=== PATIENT | female | born 1970 | race Caucasian/White ===

== ENCOUNTER 2022-09-08 06:29 | Emergency (ER) | payer OTHER ==
[2022-09-08] MEDS ORDERED: LORazepam 2 MG/ML VIAL ONE (07:03)
[2022-09-08] MEDS ORDERED: LEVETIRACETAM 500 MG/5 ML VIAL IV ONE ×3 (07:03→07:53)
[2022-09-08] MEDS ORDERED: NA CHLORIDE 0.9% 50 ML ONE ×2 (07:05→07:44)
[2022-09-08 07:14] LABS: Absolute Lymphocytes (CBC) 1.8 K/uL (0.7-4.9); Hematocrit 29.8 % (36.0-45.0); Lymphocytes % 29.7 % (15.3-44.8); MCV 76.2 fL (80-100); MPV 9.3 fL (7.6-11.3); RBC Red Blood Cell Count 3.91 M/uL (3.86-4.86)
--- NOTE | 2022-09-08 07:14 | EDPHYS ---
Physician Documentation [facility] Name: Lydia Rhoades Age: 52 yrs Sex: Female : 1970 Arrival Date: 09/08/2022 Time: 06:29 Bed 18 Private MD: Salomón Schulz HPI: 09/08 07:03 This 52 yrs old Female presents to ER via EMS with complaints of left side wicho weakness, awoke like this, seizure in er. 07:03 The patient's problem is reported as paresthesias, in left upper extremity, in left wicho lower extremity, in left side of face, an apparent seizure, Motor activity is described as localized shaking in the upper extremity, localized shaking of the lower extremity, No loss of consciousness. Patient was not incontinent of bowel or bladder. Patient was apneic. dysphasia. Onset: The symptoms/episode began/occurred at an unknown time. Duration: The episode is continuous. Context: the episode(s) was witnessed, by family, , symptoms became apparent upon waking. The symptoms are alleviated by nothing. The symptoms are aggravated by nothing. The patient presents after having a single isolated seizure, that lasted 3 minute(s). Character of seizure(s): Loss of consciousness: the patient experienced loss of consciousness, Motor activity: generalized, shaking all over, Incontinence: none, Apnea: the patient did not experience apnea, Circulation: the patient did not experience evidence of pulse disturbance. Seizure onset: just prior to arrival. Seizure Hx: the patient has no previous seizure history. Historical: - Allergies: 06:49 No Known Allergies; lg3 - Home Meds: 06:49 levetiracetam 500 mg/5 mL (5 mL) oral solution 2 times per day [Active]; trazodone 50 lg3 mg Oral tablet daily [Active]; midodrine 5 mg oral tablet 3 times per day [Active]; - PMHx: 06:44 Anemia; brain hemorrhage; cirrhosis of liver; fatty liver; HYPOGLYCEMIA; legally blind; kl - PSHx: 06:44 section; Cholecystectomy; Craniotomy; kl - Immunization history:: Client reports receiving the 2nd dose of the Covid vaccine. - Social history:: Smoking status: Patient denies any tobacco usage or history of. Patient uses alcohol, on a daily basis. ROS: 07:03 Constitutional: Negative for fever, chills, and weight loss, Eyes: Negative for injury, wicho pain, redness, and discharge, ENT: Negative for injury, pain, and discharge, Neck: Negative for injury, pain, and swelling, Cardiovascular: Negative for chest pain, palpitations, and edema, Respiratory: Negative for shortness of breath, cough, wheezing, and pleuritic chest pain, Abdomen/GI: Negative for abdominal pain, nausea, vomiting, diarrhea, and constipation, Back: Negative for injury and pain, : Negative for injury, bleeding, discharge, and swelling, Skin: Negative for injury, rash, and discoloration, Psych: Negative for depression, anxiety, suicide ideation, homicidal ideation, and hallucinations, Allergy/Immunology: Negative for hives, rash, and allergies, Endocrine: Negative for neck swelling, polydipsia, polyuria, polyphagia, and marked weight changes, Hematologic/Lymphatic: Negative for swollen nodes, abnormal bleeding, and unusual bruising. 07:03 MS/extremity: Positive for decreased range of motion, of the left arm and left leg. 07:03 Neuro: Positive for seizure activity, of the face, right arm, left arm, right leg and left leg. Exam: 07:03 Constitutional: This is a well developed, well nourished patient who is awake, alert, wicho and in no acute distress. Head/Face: Normocephalic, atraumatic. Eyes: Pupils equal round and reactive to light, extra-ocular motions intact. Lids and lashes normal. Conjunctiva and sclera are non-icteric and not injected. Cornea within normal limits. Periorbital areas with no swelling, redness, or edema. ENT: Nares patent. No nasal discharge, no septal abnormalities noted. Tympanic membranes are normal and external auditory canals are clear. Oropharynx with no redness, swelling, or masses, exudates, or evidence of obstruction, uvula midline. Mucous membranes moist. Neck: Trachea midline, no thyromegaly or masses palpated, and no cervical lymphadenopathy. Supple, full range of motion without nuchal rigidity, or vertebral point tenderness. No Meningismus. Chest/axilla: Normal chest wall appearance and motion. Nontender with no deformity. No lesions are appreciated. Cardiovascular: Regular rate and rhythm with a normal S1 and S2. No gallops, murmurs, or rubs. Normal PMI, no JVD. No pulse deficits. Respiratory: Lungs have equal breath sounds bilaterally, clear to auscultation and percussion. No rales, rhonchi or wheezes noted. No increased work of breathing, no retractions or nasal flaring. Abdomen/GI: Soft, non-tender, with normal bowel sounds. No distension or tympany. No guarding or rebound. No evidence of tenderness throughout. Back: No spinal tenderness. No costovertebral tenderness. Full range of motion. Skin: Warm, dry with normal turgor. Normal color with no rashes, no lesions, and no evidence of cellulitis. Psych: Awake, alert, with orientation to person, place and time. Behavior, mood, and affect are within normal limits. 07:03 Musculoskeletal/extremity: ROM: full passive range of motion, limited active range of motion, in the left arm and left leg, Circulation is intact in all extremities. 07:03 Neuro: Orientation: to person, place, time, situation, Mentation: appropriate for stated age, Memory: appropriate for stated age, no acute changes, Cranial nerves: facial droop noted on left, Sensation: light touch is decreased in the left arm and left leg, Gait: not tested. Deep tendon reflexes are 0 (absent) in the left bicep, left patellar and left Achilles, Babinski testing is normal, seizure activity, grand mal type is displayed. 08:04 ECG was reviewed by the Attending Physician. [facility] Vital Signs: 06:46 BP 153 / 74; Pulse 106; Resp 19 S; Pulse Ox 87% on R/A; lg3 06:46 Weight 76 kg (M); lg3 06:52 Pulse Ox 96% on 3 lpm NC; lg3 07:00 BP 169 / 78; Pulse 118; Resp 18; Pulse Ox 100% on Non-rebreather mask; db 07:45 BP 166 / 77; Pulse 127; Resp 20; Pulse Ox 99% on Non-rebreather mask; db 08:05 BP 166 / 77; Pulse 124; Resp 14; Temp 98.2(TE); Pulse Ox 97% on 4 lpm NC; db NIH Stroke Scale Scores: 08:05 NIHSS Score: 10 [facility] [place] Coma Score: 07:50 Eye Response: to pain(2). Motor Response: localizes pain(5). Verbal Response: db incomprehensible(2). Total: 9. MDM: 06:40 Patient medically screened. wicho 07:10 Differential diagnosis: CVA, TIA, Dementia, paralysis, metabolic disorder. Differential wicho diagnosis: cerebral vascular accident, cardiac arrhythmia, seizure, TIA. Data reviewed: vital signs, nurses notes, EMS record, lab test result(s), EKG, radiologic studies, CT scan, plain films. Management of patient was discussed with the following: Spring Fitter Helper: dr lam. I considered the following discharge prescriptions or medication management in the emergency department Medications were administered in the Emergency Department. See MAR. Test considered but Not performed: MRI: no mri done here. Care significantly affected by the following chronic conditions: Liver Disease, cirrhosis, anemia, brain hemorrhage. 09/08 06:42 Order name: Basic Metabolic Panel; Complete Time: 08:03 wicho 09/08 06:42 Order name: CBC with Diff 09/08 06:42 Order name: LFT's; Complete Time: 08:03 wicho 09/08 06:42 Order name: Magnesium; Complete Time: 08:03 wicho 09/08 06:42 Order name: NT PRO-BNP; Complete Time: 08:03 wicho 09/08 06:42 Order name: PT-INR; Complete Time: 07:26 wicho 09/08 06:42 Order name: Troponin HS; Complete Time: 08:03 wicho 09/08 06:42 Order name: Ptt, Activated; Complete Time: 07:26 wicho 09/08 06:42 Order name: Type And Screen; Complete Time: 09:05 wicho 09/08 06:42 Order name: Urinalysis w/ reflexes; Complete Time: 09: wicho 09/08 07:03 Order name: AMMONIA; Complete Time: 08:03 wicho 09/08 07:11 Order name: Type And Screen db 09/08 07:15 Order name: Glucose, Ancillary Testing; Complete Time: 07:19 EDMS 09/08 06:42 Order name: XRAY Chest (1 view); Complete Time: 09:05 wicho 09/08 06:42 Order name: CT Stroke Brain w/o Contrast; Complete Time: 09:05 wicho 09/08 06:53 Order name: CT Head Angio; Complete Time: 09:05 wicho 09/08 06:53 Order name: CT Neck Angio; Complete Time: 09:05 wicho 09/08 06:42 Order name: EKG; Complete Time: 06:43 09/08 06:42 Order name: Cardiac monitoring; Complete Time: 06:53 wicho 09/08 06:42 Order name: EKG - Nurse/Tech; Complete Time: 08:36 09/08 06:42 Order name: IV Saline Lock; Complete Time: 06:53 wicho 09/08 06:42 Order name: Labs collected and sent; Complete Time: 06:54 09/08 06:42 Order name: O2 Per Protocol; Complete Time: 06:53 09/08 06:42 Order name: O2 Sat Monitoring; Complete Time: 06:53 09/08 06:42 Order name: IV Saline Lock - Large Bore; Complete Time: 06:54 wicho 09/08 06:42 Order name: Misc. Order: hob 45; Complete Time: 06:54 wicho 09/08 06:42 Order name: Larson; Complete Time: 08:24 wicho 09/08 06:42 Order name: NPO; Complete Time: 08:24 wicho 09/08 07:13 Order name: Seizure Precautions; Complete Time: 08:10 [facility] EC:04 Rate is 128 beats/min. Rhythm is regular. QRS Calvin is Normal. [place] interval is normal. wicho QRS interval is normal. QT interval is normal. No Q waves. T waves are Normal. No ST changes noted. Clinical impression: Sinus tachycardia. Interpreted by me. Reviewed by me. Administered Medications: 06:51 CANCELLED (Duplicate Order): Cardene IV 5 mcg/kg IV at per protocol continuous; 5mg/hr wicho 06:51 CANCELLED (Duplicate Order): Labetalol IV 10 mg IV at per protocol once wicho 07:01 Drug: Ativan IVP 2 mg Route: IVP; Site: left antecubital; lg3 08:37 Follow up: Response: No adverse reaction db 07:01 Drug: Keppra IV 1000 mg Route: IV; Rate: bolus; Site: left antecubital; lg3 08:37 Follow up: Response: No adverse reaction; IV Status: Completed infusion; IV Intake: 50mldb 07:45 Drug: Keppra IV 1000 mg Route: IV; Rate: per protocol; Site: left antecubital; db 08:37 Follow up: Response: No adverse reaction; IV Status: Infusion continued upon transfer db 08:03 CANCELLED (Duplicate Order): foLIC Acid IVPB 1 mg IVPB once wicho 08:03 CANCELLED (Duplicate Order): NS 0.9% IV 500 ml IV at bolus once wicho 08:10 Drug: foLIC Acid IVPB 1 mg Route: IVPB; Site: left antecubital; db 08:37 Follow up: Response: No adverse reaction; IV Status: Infusion continued upon transfer db 08:10 Drug: foLIC Acid IVPB 1 mg Route: IVPB; Site: left antecubital; db 08:36 Follow up: Response: No adverse reaction; IV Status: Infusion continued upon transfer db 08:11 Drug: NS 0.9% IV 1000 ml Route: IV; Rate: 1 bolus; Site: left antecubital; db 08:37 Follow up: Response: No adverse reaction; IV Status: Infusion continued upon transfer db 08:18 Drug: Magnesium Sulfate IVPB 1 grams Route: IVPB; Infused Over: 1 hrs; Site: left db antecubital; 08:36 Follow up: Response: No adverse reaction; IV Status: Infusion continued upon transfer db 08:36 Not Given (not given. 1L bolus given by me): NS 0.9% IV 1000 ml IV at 75 ml/hr db continuous 08:38 Not Given (not given by previous shiftt): Ondansetron IVP 4 mg IVP once; over 2 minutes db Disposition Summary: 09/08/22 07:13 Transfer Ordered Transfer Location: [facility] wicho Reason: Higher level of care wicho Condition: Stable wicho Problem: new wicho Symptoms: have improved wicho Accepting Physician: to [facility], dr lacy(09/08/22 08:40) db Diagnosis - Epileptic seizures related to external causes, not intractable wicho - Cerebral infarction, unspecified - acute, last normal midnight wicho Forms: - Medication Reconciliation Form wicho - SBAR form wicho NIH Stroke Scale - NIH Stroke Score Date: 09/08/2022 Time: 08:05 Total Score = 10 10. Dysarthria (speech clarity - read or repeat words) - 0(Normal) 11. Extinction and Inattention (visual/tactile/auditory/spatial/personal) - 0(No abnormality) 1a. Level of Consciousness (LOC) - 0(Alert) 1b. Level of Consciousness (LOC) (Month \T\ Age) - 0(Both) 1c. LOC Commands (Open \T\ Closes Eyes/Senior [employer] Network Engineer) - 0(Both) 2. Best Gaze (Lateral Gaze Paresis) - 0(Normal) 3. Visual Field Loss - 0(No visual loss) 4. Facial Palsy - 1(Minor Paralysis) 5a. Left Arm: Motor (10-second hold) - 3(No effort against gravity) 5b. Right Arm: Motor (10-second hold) - 0(No drift) 6a. Left Leg: Motor (5-second hold - always test supine) - 3(No effort against gravity) 6b. Right Leg: Motor (5-second hold - always test supine) - 0(No drift) 7. Limb Ataxia (finger/nose \T\ heel/harkins - test with eyes open) - 2(Present in two limbs) 8. Sensory Loss (pinprick arms/legs/face) - 1(Mild to moderate loss) 9. Best Language: Aphasia (description/naming/reading) - 0(No aphasia) Initials: [facility] Signatures: Dispatcher [employer] EDEssence Foster, CARDROOM DRAWING RUNNER-C CARDROOM DRAWING RUNNER-CkMarianna Gannon, RN Salomón Gore MD MD cha Gibson, Lacie, RN RN lg3 Miranda Neves, RN RN db Corrections: (The following items were deleted from the chart) 06:51 06:42 Cardene IV 5 mcg/kg IV at per protocol continuous; 5mg/hr ordered. [facility] 06:51 06:42 Labetalol IV 10 mg IV at per protocol once ordered. [facility] 08:03 07:13 foLIC Acid IVPB 1 mg IVPB once ordered. [facility] 08: 07:13 NS 0.9% IV 500 ml IV at bolus once ordered. [facility] 08:40 07:13 to [facility], dr bambi de los santos
--- NOTE | 2022-09-08 07:14 | ER ---
Nurse's Notes [facility] Name: Lydia Rhoades Age: 52 yrs Sex: Female : 1970 Arrival Date: 09/08/2022 Time: 06:29 Bed 18 Private MD: Diagnosis: Epileptic seizures related to external causes, not intractable;Cerebral infarction, unspecified-acute, last normal midnight Presentation: 09/08 06:05 Chief complaint: EMS states: left sided paralysis last known normal midnight pt taken kl to CT pt awake alert answers appropriately tremors noted pt is legally blind. Care prior to arrival: Medication(s) given: zofran 4 mg, IV initiated. 20 GA, in the left forearm. 06:05 Method Of Arrival: EMS: [facility] 06:05 Acuity: LARISA 2 kl 06:46 Coronavirus screen: Client denies travel out of the [place] in the last 14 days. At this lg3 time, the client does not indicate any symptoms associated with coronavirus-19. Ebola Screen: No symptoms or risks identified at this time. Initial Sepsis Screen: Does the patient meet any 2 criteria? No. Patient's initial sepsis screen is negative. Does the patient have a suspected source of infection? No. Patient's initial sepsis screen is negative. Risk Assessment: Do you want to hurt yourself or someone else? Patient reports no desire to harm self or others. Onset of symptoms was September 08, 2022. Triage Assessment: 06:46 General: Appears distressed, Behavior is flat. lg3 Historical: - Allergies: 06:49 No Known Allergies; lg3 - Home Meds: 06:49 levetiracetam 500 mg/5 mL (5 mL) oral solution 2 times per day [Active]; trazodone 50 lg3 mg Oral tablet daily [Active]; midodrine 5 mg oral tablet 3 times per day [Active]; - PMHx: 06:44 Anemia; brain hemorrhage; cirrhosis of liver; fatty liver; HYPOGLYCEMIA; legally blind; kl - PSHx: 06:44 section; Cholecystectomy; Craniotomy; kl - Immunization history:: Client reports receiving the 2nd dose of the Covid vaccine. - Social history:: Smoking status: Patient denies any tobacco usage or history of. Patient uses alcohol, on a daily basis. Screenin:50 [facility] ED Fall Risk Assessment (Adult) History of falling in the last 3 months, lg3 including since admission No falls in past 3 months (0 pts). Abuse screen: Denies threats or abuse. Denies injuries from another. Nutritional screening: No deficits noted. Tuberculosis screening: No symptoms or risk factors identified. Assessment: 07:00 Reassessment: upon shift change patient was actively seizing. Patient given 2mg Ativan db IVP and 1Gm of Keppra per Dr. Cagle. patient placed on non-rebreather and non responsive. Unable to complete NIH score on my shift due to patient is post ictal. 07:05 Respiratory: Airway is patent Respiratory effort is even, unlabored, Respiratory db pattern is regular, symmetrical. 07:05 Neuro: Level of Consciousness is post ictal. db 07:15 Reassessment: patient to CT on monitor and on O2 with RN and equipment maint tech. db 08:00 Reassessment: Report given to HILL Rico at [facility] ICU. ss 08:11 Pain: Unable to use pain scale. Patient is disoriented. Patient is unresponsive. post db ictal. 08:31 Reassessment: Patient appears in no apparent distress at this time. Patient and/or db family updated on plan of care and expected duration. Pain level reassessed. patient placed on EMS stretcher and began waking up and moving around. Patient is now confused but responsive. General: Appears in no apparent distress. comfortable, Behavior is. Neuro: Level of Consciousness is confused, post ictal, Oriented to post ictal moving around confused. Vital Signs: 06:46 BP 153 / 74; Pulse 106; Resp 19 S; Pulse Ox 87% on R/A; lg3 06:46 Weight 76 kg (M); lg3 06:52 Pulse Ox 96% on 3 lpm NC; lg3 07:00 BP 169 / 78; Pulse 118; Resp 18; Pulse Ox 100% on Non-rebreather mask; db 07:45 BP 166 / 77; Pulse 127; Resp 20; Pulse Ox 99% on Non-rebreather mask; db 08:05 BP 166 / 77; Pulse 124; Resp 14; Temp 98.2(TE); Pulse Ox 97% on 4 lpm NC; db Vitals: 07:45 Cardiac Rhythm Assessment Sinus tach. db [place] Coma Score: 07:50 Eye Response: to pain(2). Motor Response: localizes pain(5). Verbal Response: db incomprehensible(2). Total: 9. NIH Stroke Scale Scores: 08:05 NIHSS Score: 10 wicho ED Course: 06:38 Patient arrived in ED. rv1 06:40 Salomón Cagle MD is Attending Physician. wicho 06:44 Triage completed. kl 06:46 Arm band placed on right wrist. lg3 06:48 CT Stroke Brain w/o Contrast In Process Unspecified. EDMS 06:50 Patient has correct armband on for positive identification. Placed in gown. Bed in low lg3 position. Call light in reach. Side rails up X2. Client placed on continuous cardiac and pulse oximetry monitoring. NIBP monitoring applied. residential monitor on. Door closed. Noise minimized. Warm blanket given. Family accompanied patient. 06:50 Maintain EMS IV. Dressing intact. Good blood return noted. Site clean \T\ dry. Gauge \T\ lg 3 site: 20 LAC. IV is patent. Oxygen administration via nasal cannula \T\ 3L/min Response to oxygen therapy: symptoms improved. 06:54 Type And Screen Sent. lg3 06:54 Ptt, Activated Sent. lg3 06:54 Basic Metabolic Panel Sent. lg3 06:54 CBC with Diff Sent. lg3 06:54 LFT's Sent. lg3 06:54 Magnesium Sent. lg3 06:55 NT PRO-BNP Sent. lg3 06:55 PT-INR Sent. lg3 06:55 Troponin HS Sent. lg3 07:11 Miranda Neves, RN is Primary Nurse. db 07:33 CT Head Angio In Process Unspecified. EDMS 07:33 CT Neck Angio In Process Unspecified. EDMS 07:45 XRAY Chest (1 view) In Process Unspecified. EDMS 07:54 Larson cath inserted, using sterile technique, 16 Fr., by me, balloon inflated. db 08:35 No provider procedures requiring assistance completed. Patient transferred, IV remains db in place. Administered Medications: 06:51 CANCELLED (Duplicate Order): Cardene IV 5 mcg/kg IV at per protocol continuous; 5mg/hr wicho 06:51 CANCELLED (Duplicate Order): Labetalol IV 10 mg IV at per protocol once wicho 07:01 Drug: Ativan IVP 2 mg Route: IVP; Site: left antecubital; lg3 08:37 Follow up: Response: No adverse reaction db 07:01 Drug: Keppra IV 1000 mg Route: IV; Rate: bolus; Site: left antecubital; lg3 08:37 Follow up: Response: No adverse reaction; IV Status: Completed infusion; IV Intake: 50mldb 07:45 Drug: Keppra IV 1000 mg Route: IV; Rate: per protocol; Site: left antecubital; db 08:37 Follow up: Response: No adverse reaction; IV Status: Infusion continued upon transfer db 08:03 CANCELLED (Duplicate Order): foLIC Acid IVPB 1 mg IVPB once wicho 08:03 CANCELLED (Duplicate Order): NS 0.9% IV 500 ml IV at bolus once wicho 08:10 Drug: foLIC Acid IVPB 1 mg Route: IVPB; Site: left antecubital; db 08:37 Follow up: Response: No adverse reaction; IV Status: Infusion continued upon transfer db 08:10 Drug: foLIC Acid IVPB 1 mg Route: IVPB; Site: left antecubital; db 08:36 Follow up: Response: No adverse reaction; IV Status: Infusion continued upon transfer db 08:11 Drug: NS 0.9% IV 1000 ml Route: IV; Rate: 1 bolus; Site: left antecubital; db 08:37 Follow up: Response: No adverse reaction; IV Status: Infusion continued upon transfer db 08:18 Drug: Magnesium Sulfate IVPB 1 grams Route: IVPB; Infused Over: 1 hrs; Site: left db antecubital; 08:36 Follow up: Response: No adverse reaction; IV Status: Infusion continued upon transfer db 08:36 Not Given (not given. 1L bolus given by me): NS 0.9% IV 1000 ml IV at 75 ml/hr db continuous 08:38 Not Given (not given by previous shiftt): Ondansetron IVP 4 mg IVP once; over 2 minutes db Medication: 08:00 VIS not applicable for this client. ss Intake: 08:37 IV: 50ml; Total: 50ml. db Outcome: 07:13 ER care complete, transfer ordered by . wicho 08:34 Transferred by [facility] to [facility], Transfer form completed. db 08:34 Condition: stable 08:34 critical 08:34 Instructed on the need for transfer, family informed 08:40 Patient left the ED. filiberto NIH Stroke Scale - NIH Stroke Score Date: 09/08/2022 Time: 08:05 Total Score = 10 10. Dysarthria (speech clarity - read or repeat words) - 0(Normal) 11. Extinction and Inattention (visual/tactile/auditory/spatial/personal) - 0(No abnormality) 1a. Level of Consciousness (LOC) - 0(Alert) 1b. Level of Consciousness (LOC) (Month \T\ Age) - 0(Both) 1c. LOC Commands (Open \T\ Closes Eyes/Package Dye Stand Loader) - 0(Both) 2. Best Gaze (Lateral Gaze Paresis) - 0(Normal) 3. Visual Field Loss - 0(No visual loss) 4. Facial Palsy - 1(Minor Paralysis) 5a. Left Arm: Motor (10-second hold) - 3(No effort against gravity) 5b. Right Arm: Motor (10-second hold) - 0(No drift) 6a. Left Leg: Motor (5-second hold - always test supine) - 3(No effort against gravity) 6b. Right Leg: Motor (5-second hold - always test supine) - 0(No drift) 7. Limb Ataxia (finger/nose \T\ heel/harkins - test with eyes open) - 2(Present in two limbs) 8. Sensory Loss (pinprick arms/legs/face) - 1(Mild to moderate loss) 9. Best Language: Aphasia (description/naming/reading) - 0(No aphasia) Initials: wicho Signatures: Dispatcher [employer] EDMarianna Javed RN RN kl Anderson, Corey, MD MD cha Smirch, Shelby, RN RN ss Gibson, Lacie, RN RN lg3 Miranda Neves RN RN db Villegas, Rebecca rv1
[2022-09-08 07:22] LABS: Protime INR 0.99
[2022-09-08 07:34] LABS: Albumin 3.3 g/dL (3.4-5.0); Bilirubin Direct 0.1 mg/dL (0-0.2); Bilirubin Total 0.2 mg/dL (0.2-1.0); Magnesium 1.4 mg/dL (1.6-2.4); Potassium 3.8 mEq/L (3.5-5.1); Protein, Total 7.3 g/dL (6.4-8.2); Troponin High Sensitivity 6.1 pg/mL (<58.9)
[2022-09-08] MEDS ORDERED: FOLIC ACID 5 MG/ML VIAL ONE (08:10)
[2022-09-08] MEDS ORDERED: NA CHLORIDE 0.9% 1,000 ML ONE (08:11)
--- NOTE | 2022-09-08 08:15 | RAD REPORT ---
EXAM DESCRIPTION: CT - Ct Stroke Brain Wo Cont - 09/08/2022 6:46 am CLINICAL HISTORY: STROKE ALERT Headache, drowsiness, CVA symptomology COMPARISON: Head Brain Wo Cont dated 09/01/2022 TECHNIQUE: All CT scans are performed using dose optimization technique as appropriate and may inclu de automated exposure control or mA/KV adjustment according to patient size. FINDINGS: No intracranial hemorrhage, hydrocephalus or extra-axial fluid collection.Area of gliosis right occipital lobe compatible with old infarction. The paranasal sinuses and mastoids are clear. Right occipital craniotomy. IMPRESSION: No acute intracranial abnormality. 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
[2022-09-08] MEDS ORDERED: MAGNESIUM SULFATE 1 gm IVPB 1 GM/100 ML BAG IV ONE (08:23)
[2022-09-08 08:25] LABS: Specific Gravity > 1.030 (1.005-1.030); Urine Bilirubin NEGATIVE (Negative); Urine Blood Negative (Negative); Urine Clarity Clear (Clear); Urine Color Colorless (Yellow); Urine Glucose NEGATIVE (Negative); Urine Protein NEGATIVE (Negative); Urine Urobilinogen Normal (Normal)
--- NOTE | 2022-09-08 08:30 | RAD REPORT ---
EXAM DESCRIPTION: CT - Head angio - 09/08/2022 7:31 am CLINICAL HISTORY: WEAKNESS COMPARISON: Ct Stroke Brain Wo Cont dated 09/08/2022; Head Brain Wo Cont dated 09/01/2022 TECHNIQUE: CT angiography of the head was performed with MIPs. All CT scans are performed using dose optimization technique as appropriate and may include automated exposure control or mA/KV adjustment according to patient size. FINDINGS: No evidence of large vessel occlusion. No evidence of aneurysm is detected. No flow-limiti ng stenosis or vascular malformation identified. Antegrade flow is seen in the vertebral arteries. The vertebral arteries are codominant. The visualized dural venous sinuses are patent. IMPRESSION: No significant flow abnormality is detected.
--- NOTE | 2022-09-08 08:33 | RAD REPORT ---
EXAM DESCRIPTION: CT - Neck Angio - 09/08/2022 7:31 am CLINICAL HISTORY: cva Headache, drowsiness, CVA symptom COMPARISON: Ct Stroke Brain Wo Cont dated 09/08/2022; Head angio dated 09/08/2022 TECHNIQUE: CT angiography of the neck vessels was performed with MIPs. All CT scans are performed using dose optimization technique as appropriate and may include automated exposure control or mA/KV adjustment according to patient size. FINDINGS: A left aortic arch is identified with normal three vessel configuration of the great vesse ls. No significant flow abnormality is seen of the common carotid bilaterally. No significant stenosis is identified involving the cervical segments of both internal carotid arteri es. Normal flow is seen within both vertebral arteries. IMPRESSION: No significant flow abnormality of the neck vessels is identified.
--- NOTE | 2022-09-08 08:58 | RAD REPORT ---
EXAM DESCRIPTION: RAD - Chest Single View - 09/08/2022 7:44 am CLINICAL HISTORY: COUGH Chest pain. COMPARISON: No comparisons FINDINGS: Portable technique limits examination quality. The lungs are underinflated resulting in vascular crowding. No focal infiltrate. The heart is mildly prominent. No displaced fractures.
[2022-09-08 08:59] VITALS: BP 166/77
[2022-09-08 09:01] VITALS: TEMP 98.2; O2SAT 97
[2022-09-08 10:06] LABS: Anisocytosis 3+; Blood Morphology Comment NOTED (NOT SEEN); Hypochromasia 1+; Ovalocytes 1+; Platelet Estimate DECR; Poikilocytosis SLIGHT; White Blood Cell Scan OK (OK)
--- NOTE | 2022-09-10 15:26 | EKG ---
Test Date: 2022-09-08 Test Time: 07:58:28 Clinical Care Manager: GARDENIA MEASUREMENT RESULTS: Intervals: Rate: 128 KS: 152 QRSD: 82 QT: 308 QTc: 449 [place]: P: 33 KS: 152 QRS: 57 T: 33 INTERPRETIVE STATEMENTS: Sinus tachycardia Otherwise normal ECG Compared to ECG 09/01/2022 09:37:30 Sinus rhythm no longer present Electronically Signed On 09-10-22 15:25:41 CDT by Cristofer Nick
== END 2022-09-08 08:40 | disposition short-term general hospital (02) ==
LOC: ER 06:29
DX: I63.9 Cerebral infarction, unspecified (principal)
CPT/HCPCS: 93005; 85025; 80048; 36415; 82140; 86900; 83735; 86850; 85610; 86901; 82947; 80076; 85730; 81003; 84484; 83880; 70496; 70498; 70450; 71045; Q9967; J3475; J1953 ×3; J7030